=== PATIENT | female | born 1960 | race Caucasian/White ===

== ENCOUNTER → 2017-08-10 | Outpatient (CLI) | payer OTHER | LOC: BRMIMAGING 07:38 | DX: Z12.31 Encounter for screening mammogram for malignant neoplasm of breast (principal) | CPT/HCPCS: G0202 ==

== ENCOUNTER → 2018-08-22 | Outpatient (CLI) | payer OTHER | LOC: BRMIMAGING 07:58 | DX: Z12.31 Encounter for screening mammogram for malignant neoplasm of breast (principal) ==